=== PATIENT | male | born 1985 | race Caucasian/White ===

== ENCOUNTER 2017-06-27 17:17 | Emergency (ER) | payer OTHER, SELFPAY ==
[2017-06-27 17:31] VITALS: BP 113/81; PULSE 94; RESP 18; TEMP 37.2; O2SAT 96; BMI 28.8
--- NOTE | 2017-06-27 17:35 | XR_ITS ---
XR chest portable HISTORY: Pain ITS.REASON: epigastric pain ORDERING PHYSICIAN: Trav Randhawa MD PATIENT AGE: 32 years COMPARISON: None available FINDINGS: The cardiomediastinal silhouette and pulmonary vascularity are within normal limits. The lungs are clear without infiltrates, suspicious nodules, or pleural effusions. No acute bony abnormalities. IMPRESSION: Negative chest, no acute finding
--- NOTE | 2017-06-27 18:06 | [facility].EDGENADL ---
ED Disposition Clinical Impression: Abdominal pain Disposition: Home, Self-Care Condition on Discharge: Good Instructions: Acute Abdominal Pain Additional Instructions: return if any chest pain or shortness of breath or worsening abdominal pain to ER. follow up with your family MD for recheck. Prescriptions: Omeprazole Magnesium [Prilosec Otc 20mg Tab] 20 mg PO DAILY #10 tab - Critical Care Critical Care Time: No Attestation: On 06/27/17, the high probability of a clinically significant, sudden or life threatening deterioration of the following system(s) required my full and direct attention, intervention and personal management. The time I documented below is in addition to time spent performing reported procedures but includes the following listed in this critical care notation. Medical Decision Making - Medical Records MR Comment: 1928 [facility] trop lipase cmp pending results. they state they will release them. 1939 RN state lab called back and are still working on blood. 1954 Georgette come back to troponin is negative patient has been in the epigastric abdominal discomfort is worse with eating that last day at a time and has negative EKG negative troponin will start him on an acid medicine and have him follow-up with his family doctor will have him return if any chest pain or shortness of breath develop. does not seem cardiac, but will have him followup with pmd for recheck. Vital Signs: 06/27/17 17:31 06/27/17 18:19 06/27/17 18:30 Temperature 99.0 F Temperature Source Oral Pulse Rate [Right Brachial] 94 H 88 88 Respiratory Rate 18 20 21 Blood Pressure [Right Arm] 113/81 115/62 115/62 Blood Pressure Mean [Right Arm] 91 79 79 Blood Pressure Source [Right Arm] Automatic Cuff Automatic Cuff Automatic Cuff Blood Pressure Position [Right Arm] Supine Sitting Sitting 02 Sat by Pulse Oximetry 96 95 95 Oxygen Delivery Method Room Air Room Air 06/27/17 19:30 Temperature Temperature Source Pulse Rate [Right Brachial] 81 Respiratory Rate 17 Blood Pressure [Right Arm] 118/73 Blood Pressure Mean [Right Arm] 88 Blood Pressure Source [Right Arm] Automatic Cuff Blood Pressure Position [Right Arm] 02 Sat by Pulse Oximetry 95 Oxygen Delivery Method Room Air - Lab Data Lab Results 06/27/17 18:00: WBC 6.8, RBC 5.52, Hgb 15.7, Hct 47.5, MCV 86.1, MCH 28.5, MCHC 33.1, RDW 13.3, Plt Count 262, MPV 7.0 L, Neut % (Auto) 67.3, Lymph % (Auto) 23.2, [place] % (Auto) 6.5, Eos % (Auto) 2.8, Baso % (Auto) 0.3, Neut # (Auto) 4.6, Lymph # (Auto) 1.6, [place] # (Auto) 0.4, Eos # (Auto) 0.2, Baso # (Auto) 0.0 06/27/17 18:00: Sodium 138, Potassium 3.5, Chloride 99, Carbon Dioxide 27, Anion Gap 15.5 H, BUN 11, Creatinine 1.34 H, Estimated Creat Clear 116, Estimated GFR 63, Est GFR ( Amer) 76, Glucose 104, Calcium 8.9, Total Bilirubin 0.6, AST 39 H, ALT 75, Alkaline Phosphatase 59, Troponin I < 0.02, Total Protein 8.6 H, Albumin 4.5, Globulin 4.1 H, Albumin/Globulin Ratio 1.1, Lipase 126 Result diagrams: 06/27/17 18:00 06/27/17 18:00 Orders (Tests/Meds): ORDERS Category Date Time Status CXR --portable [XR chest portable] Stat Exams 06/27/17 17:35 Taken - ECG Data Tracing #1 ER EKG read by myself shows normal sinus rhythm rate of 90, normal axis, no QT prolongation, normal EKG - Norm Inquiry Pt receiving controlled substance: No General Adult HPI - General Chief complaint: Abdominal Pain Stated complaint: nausa.abd pain Mode of Arrival: Ambulatory Limitations: No Limitations Description of Symptoms (Recalled from ER Triage Doc. by RN): nausea, vomiting, diarrhea since last night. cycles every 2-3 days for the last 6 weeks - History of Present Illness HPI narrative: Patient states he has had epigastric abdominal pain for the past month he states that he has been having some anorexia and that eating makes the pain worse he states it is a burning achy type of pain. It is not exertional no sh
[2017-06-27 18:13] LABS: Basophils % 0.3 % (0.1-2.0); Eosinophils # 0.2 K/mm3 (0.0-0.4); Eosinophils % 2.8 % (0.1-12.0); Hematocrit 47.5 % (42.0-52.0); Hemoglobin 15.7 g/dL (14.1-18.0); Lymphocytes # 1.6 K/mm3 (0.7-4.5); Lymphocytes % 23.2 K/mm3 (10-50); Mean Corpuscular HGB Conc 33.1 g/dL (31.8-35.4); Mean Corpuscular Hemoglobin 28.5 pg (27.0-31.2); Mean Corpuscular Volume 86.1 fl (80-94); Monocytes # 0.4 K/mm3 (0.1-1.0); Monocytes % 6.5 % (1.7-9.3); Neutrophils # 4.6 K/mm3 (1.8-7.8); Neutrophils % 67.3 % (37.0-80.0); Platelet Count 262 K/mm3 (142-424); Red Blood Count 5.52 M/mm3 (4.60-6.20); Red Cell Distribution Width 13.3 % (11.5-17.5); White Blood Count 6.8 K/mm3 (4.8-10.8)
[2017-06-27 18:19] VITALS: BP 115/62; PULSE 88; RESP 20; O2SAT 95
[2017-06-27 18:30] VITALS: BP 115/62; PULSE 88; RESP 21; O2SAT 95
[2017-06-27 19:30] VITALS: BP 118/73; PULSE 81; RESP 17; O2SAT 95
[2017-06-27 19:50] LABS: Alanine Aminotransferase 75 U/L (12-78); Albumin Level 4.5 gm/dL (3.4-5.0); Albumin/Globulin Ratio 1.1 (1.1-1.8); Alkaline Phosphatase 59 U/L (46-116); Anion Gap 15.5 mEq/L (5-15); Aspartate Amino Transferase 39 U/L (15-37); Bilirubin,Total 0.6 mg/dL (0.2-1.0); Blood Urea Nitrogen 11 mg/dL (7-18); Calcium 8.9 mg/dL (8.5-10.1); Carbon Dioxide 27 mmol/L (21.0-32.0); Chloride 99 mmol/L (98-107); Creatinine Clearance Estimated 116 mL/min (0-300); Creatinine,Serum 1.34 mg/dL (0.70-1.30); Estimated Glomerular Filt Rate 63 ml/min (>60); GFR (African American) 76 ML/MIN (>60); Globulin 4.1 gm/dl (1.3-3.2); Glucose 104 mg/dL (74-106); Lipase 126 u/L (73-393); Potassium 3.5 mmoL/L (3.5-5.1); Sodium 138 mmol/L (136-145); Total Protein,Serum 8.6 gm/dL (6.4-8.2); Troponin I < 0.02 ng/ml (0.00-0.06)
[2017-06-27 20:08] VITALS: BP 114/66; PULSE 80; RESP 16; TEMP 36.6
== END 2017-06-27 20:10 | disposition home or self-care (01) ==
PROVIDERS: Emergency Provider Emergency Medicine
DX: R10.13 Epigastric pain (principal); Z88.3 Allergy status to other anti-infective agents; Z88.0 Allergy status to penicillin
CPT/HCPCS: 71045; 80053; 83690; 84484; 85025; 93005; 99283